=== PATIENT | male | born 1930 | race Caucasian/White ===

== ENCOUNTER 2019-05-02 05:37 | Inpatient (IN) ==
--- NOTE | 2019-04-27 08:10 | History & Physical Report ---
Date of Service April 27, 2019 date of surgery: 05/02/19 Assessment & Plan (1) Tricompartment osteoarthritis of right knee: Risks and benefits of the procedure discussed in detail today, patient would like to proceed with a Right total knee replacement at [facility] as scheduled. will obtain medical clearance prior to surgery as well as obtain PATs at [facility]. Will resume his Eliquis after the surgery, f/u 2 weeks post op for routine post-operative care and x-ray, sooner if having any problems. will make arrangements for HHPT at the time of discharge. At this point in time, has failed conservative measures and would like to proceed with surgical intervention. History of Present Illness Chief Complaint: right knee pain Primary Care Provider: HARLEY ESTES Mr Schmidt is a 89 year old male who complains of right knee pain, presents for pre-op evaluation prior to a right total knee replacement at [facility]. He complains of pain, crepitus, decreased range of motion and stiffness. He states that the symptoms have been chronic non-traumatic and occur constantly with intermittent worsening. Currently the patient states that the symptoms are severe. The pain is described as aching, sharp and throbbing. The symptoms are aggravated by ascending stairs, daily activities, descending stairs, first steps while awake, weight bearing and walking. Fox states that the symptoms are relieved by no specific activity. He is also experiencing decreased mobility, joint pain, limping, loss of motion, pain after activity and stiffness. Prior pain medications include Ultram. Pt is on Eliquis therapy which limits his NSAID use He has been treated with previous Visco and Cortisone in the past on the right and left side equally. He has had PT, has braces and is ambulating with a rolling walker. Allergies Allergy/AdvReac Type Severity Reaction Status Date / Time Penicillins Allergy Severe Anaphylaxis Verified 04/26/19 10:15 ibuprofen [From Motrin] AdvReac Unknown Depression Verified 04/26/19 10:15 Home Medications Home Medications Medication Instructions Recorded Confirmed Type albuterol sulfate 2 puff INHALATION Q6H PRN 04/26/19 04/26/19 History apixaban [Eliquis] 2.5 mg PO BID 04/26/19 04/26/19 History bimatoprost [Lumigan] 1 drp OPHTHALMIC (EYE) PM 04/26/19 04/26/19 History potassium citrate 10 meq PO BID 04/26/19 04/26/19 History tramadol 50 mg PO Q6H PRN 04/26/19 04/26/19 History Past Med/Surg History Medical History Atrial fibrillation Cancer prostate cancer with radiation. no surgery. Chronic obstructive pulmonary disease mild Glaucoma Kidney stones On anticoagulant therapy Osteoarthritis Surgical History History of colonoscopy History of cystoscopy History of lithotripsy History of nasal septoplasty History of open reduction and internal fixation (ORIF) procedure right ankle S/P trigger finger release unsure of side Family History Mother Family history of diabetes mellitus Brother Family hx of colon cancer FHx: pancreatic cancer Social History Preferred Language: Greenlandic Communication Ability: Effective Water Supply Technician Required: No Beliefs That Will Affect Care: None Current Living Situation: Spouse Other Information That Helps Us Care for You: No Feels Safe at Home: Yes Safety Concerns: Feels Safe At This Time Smoking Status: Never smoker Do You Dip or Chew Tobacco: No Second Hand Exposure: No Tobacco Cessation Education Requested by Patient: No Hx Alcohol Use: No Hx Substance Use: No Review of Systems Review of Systems: All systems reviewed & are unremarkable except as noted in HPI & below Constitutional: no fever, no chills and no sweats Respiratory: no cough and no dyspnea Cardiovascular: no chest pain, no dyspnea and no orthopnea Gastrointestinal: no abdominal pain, no nausea and no vomiting Musculoskeletal: as per Subjective / HPI Physical Exam Physical Exam: Ht: 6ft Wt: 92.986kg BP: 104/68 Pulse: 62 Constitutional: WD/WN, vitals as above no acute distress Respiratory: normal respiratory effort, lungs clear to auscultation no respiratory distress, no labored breathing and does not use accessory muscles Cardiovascular: RRR, no murmur, no edema Gastrointestinal (Abdomen): normal bowel sounds, soft, nontender, no hepatosplenomegaly Musculoskeletal: Right Knee Exam He ambulates with a limp and uses a walker, overall varus alignment, no atrophy or ecchymosis, mild effusion, diffuse tenderness to the knee greatest over medial compartment, negative patellar apprehension , mild crepitation with motion, Patella position neutral, andree's negative, Inga's - lateral positive, Inga's - medial positive, Posterior drawer- negative, anterior drawer negative, valgus stress negative, varus stress negative, no extensor lag, pain with active range of motion, less pain with passive painful ROM, Range of motion 0/3/110. No pain with active/passive ROM of ankle. Lower extremity strength normal. Lower extremity neuro-vascular is normal Results & Data Diagnostic Findings Right Knee X-ray from 04-23-19 showing advanced tricompartmental degenerative changes to the right knee, narrowing of of all three compartments, with patellar spurring noted, findings showing joint space narrowing, osteophyte formation and subchondral sclerosis noted. overall varus alignment. no acute bony pathology noted.
--- NOTE | 2019-04-27 08:47 | PAT Medication Instructions ---
Medication Instructions Date of Service April 27, 2019 Home Medications albuterol sulfate 2 puff INHALATION Q6H PRN apixaban [Eliquis] 2.5 mg PO BID bimatoprost [Lumigan] 1 drp OPHTHALMIC (EYE) PM potassium citrate 10 meq PO BID tramadol 50 mg PO Q6H PRN ASK your prescriber and surgeon apixaban [Eliquis] 2.5 mg PO BID MUST BE HELD FOR A MINIMUM OF 72 HOURS BEFORE SURGERY FOR SPINAL ANESTHESIA (PREFERRED METHOD) DO NOT take the morning of surgery potassium citrate 10 meq PO BID Take morning of surgery With a small sip of water, OTHERWISE NOTHING TO EAT OR DRINK AFTER MIDNIGHT: albuterol sulfate 2 puff INHALATION Q6H PRN (if needed, and bring with you to the hospital) tramadol 50 mg PO Q6H PRN (if needed, may be taken up to four hours before surgery) Take evening before surgery albuterol sulfate 2 puff INHALATION Q6H PRN (if needed) bimatoprost [Lumigan] 1 drp OPHTHALMIC (EYE) PM potassium citrate 10 meq PO BID tramadol 50 mg PO Q6H PRN (if needed) Other Notes If you have any questions please call us at [phone] or [phone] or [phone] or [phone]
--- NOTE | 2019-04-27 11:32 | Anesthesiology Consultation ---
Date of Service April 27, 2019 Assessment & Plan (1) Encounter for pre-operative examination: Chart Review Chart Review: Acceptable Risk for Surgery (pending surgeon-ordered PCP clearance (Alirio, done 04/24)) and Patient seen in Pre Admission Testing Teaching & Discussion Instructed NPO after midnight before surgery, except medications with 15 cc of water. Medication instructions provided according to the PAT guidelines. History Surgery Operation Date: 05/02/19 12:10 Proposed Procedures p Right Total Knee Arthroplasty - Gray Restrepo DO Height/Weight Height: 6 ft Weight: 97.2 kg Allergies Allergy/AdvReac Type Severity Reaction Status Date / Time Penicillins Allergy Severe Anaphylaxis Verified 04/26/19 10:15 ibuprofen [From Motrin] AdvReac Unknown Depression Verified 04/26/19 10:15 Medications Home Medications Medication Instructions Recorded Confirmed Last Taken albuterol sulfate 2 puff INHALATION Q6H PRN 04/26/19 04/26/19 Unknown apixaban [Eliquis] 2.5 mg PO BID 04/26/19 04/26/19 Unknown bimatoprost [Lumigan] 1 drp OPHTHALMIC (EYE) PM 04/26/19 04/26/19 Unknown potassium citrate 10 meq PO BID 04/26/19 04/26/19 Unknown tramadol 50 mg PO Q6H PRN 04/26/19 04/26/19 Unknown Past Medical History Medical History Atrial fibrillation Rate controlled, on Eliquis. Cancer h/o prostate cancer, s/p radiation therapy. Chronic obstructive pulmonary disease mild, very very rare albuterol use. Glaucoma Kidney stones On anticoagulant therapy Osteoarthritis Exercise / Class Metabolic Activity III < 4 Walking/Shop/Light housework (No SOB or CP ambulating on one level) Past Family History Family History Mother Family history of diabetes mellitus Brother Family hx of colon cancer FHx: pancreatic cancer Past Surgical History Surgical History History of colonoscopy History of cystoscopy History of lithotripsy History of nasal septoplasty History of open reduction and internal fixation (ORIF) procedure right ankle S/P trigger finger release unsure of side Past Anesthesia History No Hx of Anesthesia Complications and No Family Hx of Anesthesia Complications History of PONV No Hx of PONV and No Hx of Motion Sickness Social History Smoking Status: Never smoker Do You Dip or Chew Tobacco: No Hx Alcohol Use: No Hx Substance Use: No substance use type: does not use Review of Systems Pt denies any recent chest pain, shortness of breath, palpitations, cough, fever or URI. Physical Exam Vital Signs BP: 120/71 P: 86bpm SPO2: 94% RA T: 97.5 F R: 20 ENMT Mouth: + dental bridge (permanent, bottom R); no chipped teeth and no loose teeth Thyromental Distance: > or= 3.5 Finger Breadths (3.5) Mallampati Class: II Neck + limited neck extension (moderately); + abnormal visual inspection Respiratory normal respiratory effort Auscultation: lungs clear to auscultation bilaterally Cardiovascular Rate/Rhythm: regular rate; + abnormal rhythm (irreg irreg) Heart Sounds: + murmur (I/ mitral) Vessels: no carotid bruit Extremities: + edema (trace non-pitting B/L LE) Testing Laboratory Results Blood Type A Positive 04/27/19 11:54 Antibody Screen NEGATIVE 04/27/19 11:54 04/24/19 WBC: 8.25 H/H: 15.2/46.0 PLATELETS: 263 SODIUM: 142 POTASSIUM: 4.2 CHLORIDE: 107 CO2: 28.0 BUN: 28.6 CREATININE: 1.42 GLUCOSE: 152 PT: 12.3 PTT: 31.0 INR: 1.10 UA: unremarkable, negative for bacteria TYPE AND SCREEN: Electrocardiogram Date: 03/25/19 Findings: + AFIB @ (67) Left axis deviation. Low QRS voltage. Nonspecific ST and TWA. Compared to trace dated 05/20/17, vent rate has decreased, rhythm remains non- sinus. Chest X-Ray Date: 04/24/19 Findings: + NAD COPD. Echocardiogram Date: 10/02/18 EF: 60-65% LV is normal in size, wall thickness, wall motion, and contractility. RV is normal in size and contractility. Degenerated MV, mild MR and AI. Normal RVSP.
[2019-05-02] MEDS ORDERED: METOCLOPRAMIDE HCL 10 MG TABLET PO SCH (06:00)
[2019-05-02] MEDS ORDERED: ACETAMINOPHEN 500 MG TAB PO SCH (06:00)
[2019-05-02] MEDS ORDERED: ROPIVACAINE 0.5% HCL/PF 150 MG, BUPIVACAINE 0.5% MPF 30 ML, EPINEPHrine 30MG/30ML (OR U... INSTIL SCH (06:00)
[2019-05-02] MEDS ORDERED: CLINDAMYCIN 600 MG/54 ML BAG IV SCH (06:00)
[2019-05-02] MEDS ORDERED: CEFAZOLIN 2000MG 2,000 MG/15 ML SYR IV SCH (06:00)
[2019-05-02] MEDS ORDERED: GABAPENTIN 300 MG CAP PO SCH (06:00)
[2019-05-02] MEDS ORDERED: FAMOTIDINE 20 MG TAB PO SCH (06:00)
[2019-05-02] MEDS ORDERED: CeleBREX 200 MG CAP PO SCH (06:00)
[2019-05-02] MEDS ORDERED: LR 500ML BOLUS, THEN 15ML/HR IV SCH (06:00)
[2019-05-02] MEDS ORDERED: dexAMETHasone 4 MG TAB PO SCH (06:00)
[2019-05-02] MEDS ORDERED: BUPIVACAINE 0.5 % 5 MG/1 ML PF 10ML VIAL ONE (06:29)
[2019-05-02] MEDS ORDERED: ROPIVACAINE 0.5% 5 MG/ML 30 ML VIAL ONE (06:29)
[2019-05-02] MEDS ORDERED: EPINEPHrine INJ 1 MG/ML AMP ONE (06:29)
[2019-05-02] MEDS ORDERED: BACITRACIN INJ 50,000 UNIT VIAL ONE (06:57)
[2019-05-02] MEDS ORDERED: ORTHO JOINT ANESTHETIC ONE (06:57)
[2019-05-02] MEDS ORDERED: MIDAZOLAM HCL 1 MG/ML 2ML VIAL ONE (06:59)
[2019-05-02] MEDS ORDERED: fentaNYL citrate 100 MCG/2 ML VIAL ONE (06:59)
[2019-05-02] MEDS ORDERED: LIDOCAINE HCL 2% 2 ML VIAL/AMP(20MG/ML) INFIL ONE (06:59)
[2019-05-02] MEDS ORDERED: PROPOFOL IV EMULSION 10 MG/ML 20 ML VIAL IV ONE (06:59)
--- NOTE | 2019-05-02 07:02 | History & Physical Bridge Note ---
Date of Service May 02, 2019 History & Physical Bridge Note I have examined the patient, reviewed the History & Physical and in the interval since the performance of the History & Physical I have noted the following changes of clinical significance: no changes noted
[2019-05-02] MEDS ORDERED: ONDANSETRON INJ 2 MG/ML 2 ML VIAL IV PRN ×2 (07:23→11:10)
[2019-05-02] MEDS ORDERED: ePHEDrine sulfate 50 MG/ML AMP IV PRN (07:23)
[2019-05-02] MEDS ORDERED: ATROPINE SULFATE 0.1 MG/ML 10ML SYR IV PRN (07:23)
[2019-05-02] MEDS ORDERED: fentaNYL citrate 100 MCG/2 ML VIAL IV PRN (07:23)
--- NOTE | 2019-05-02 09:23 | Operative Report ---
Post Operative Report Pre & Post Diagnosis Operation Date: 05/02/19 08:20 Pre-Op Diagnosis: Unilateral Primary Osteoarthritis, Right Knee Post-Op Diagnosis: Unilateral Primary Osteoarthritis, Right Knee Procedure Operation Date: 05/02/19 08:20 Actual Procedures p Right Total Knee Arthroplasty(Right) utilizing Zhang & Nephew journey to non- block total knee arthroplasty size 7 femur size 6 tibia size 12 polyethylene size 35 oval patella- Gray Restreop DO Surgeon Gray Restrepo DO Chief Digital Officer Mike HOLT Estimated Blood Loss 5 Findings Consistent with Post-Op Diagnosis Patient presents with severe end-stage tricompartmental degenerative joint disease right knee no response to conservative management patient rested for right total knee arthroplasty the above intraoperative findings were noted subchondral sclerosis marginal osteophytes moderate to large effusion eburnated [id number] tricompartmentally Specimens Bone cartilage Drains Medium bore Hemovac Complications none Disposition Accompanied Patient To Recovery: No Disposition: Recovery Room Indications Patient presents as needed 9-year-old white male being seen by with planes of ongoing pain about his right knee no response to conservative management is failed attempted conservative measures including physical therapy anti- inflammatories relative rest activity modification corticosteroid injection Vis co supplementation in light of his age of 89 he is still physiologically in excellent condition very active and is essentially unable to ambulate due to the severe arthritis of his knee after medical clearance preoperative discussion with family patient extensive discussion regarding risk complications decision made to proceed forward with right total knee arthroplasty Description of Procedure After proper prepping and draping of the Right lower extremity anterior midline incision was made over the region of the extensor extensor mechanism after meticulous hemostasis was obtained and maintained in subcutaneous tissues a medial parapatellar incision was made The patella was subluxed lateralward the medial lateral gutter were cleaned from any hypertrophic synovitis and scar tissue of the distal femoral block was placed and the distal femoral osteotomy cut was made subsequently the chamfers anterior and posterior osteotomy cuts were made utilizing the 4-in-1 block the tibia was subsequently subluxed anteriorward medial and ateral meniscal remnants were excised in their entirety remnants of the anterior and posterior cruciate ligaments were excised in their entirety excellent exposure of the proximal tibia was obtained the tibial osteotomy guide was placed on the proximal tibial osteotomy cut was made once again the knee was irrigated with copious amounts of sterile saline solution the patella was subsequently everted lateralward thickened scar tissue around the patella was removed the patella was subsequently cut utilizing a freehand technique and was drilled prepared for final preparation and placement of patella socially flexion-extension gaps were checked and the equal and symmetric trials were placed to the appropriate femoral and tibial trials with poly-spacer being placed for equal flexion and extension gaps and full range of motion including extension to 0 and flexion to 140 the trial components after having been taken to recovery range of motion was subsequently removed meticulous hemostasis was obtained and maintained subsequently a knee block injection of joint cocktail including ropivacaine 0.5% 150 mg. Bupivacaine 0.5% epinephrine 1-200,030 mL's toradol 30 mg dexamethasone 4 mg ketamine 10 mg clonidine 100 micrograms normal saline solution 30 mg was infiltrated into the soft tissues of the posterior knee medial lateral gutters and periosteal synovium special attention was paid to protect neurovascular structures at all times subsequently trial components having been removed the knee was irrigated with sterile saline solution. debris was removed the proximal tibia was subsequently prepared and was made ready for the placement of the tibial component tibial component was also cemented and tamped into position the femoral component was subsequently placed and cemented in the position the patellar component was subsequently cemented in position because hemostasis once again obtained and maintained wound having been thoroughly irrigated with debridement and debridement lavage was performed as well as a medial parapatellar incision closed with #1 Vicryl in interrupted fashion subcutaneous was closed with #2 Vicryl skin was closed with skin clips. PA-C was necessary for prepping and drapping as well as wound closure of deep fascia Sub cutaneous tissue and skin and was necessary for the case. A sterile compressive dressing was placed patient was taken to recovery in stable condition of report dictated by Lauro I attest to the content of the Intraoperative Record and any orders documented therein. Any exceptions are noted below. I attest to the content of the Intraoperative Record and any orders documented therein. Any exceptions are noted below.
[2019-05-02] MEDS ORDERED: PHENYLEPHRINE 100MCG/ML 5ML SYR ONE (09:49)
--- NOTE | 2019-05-02 10:26 | XRay Report ---
XR knee RT 2V routine CLINICAL HISTORY: Surgical Post Op postoperative COMPARISON: None. DISCUSSION: Anatomic alignment posttotal right knee arthroplasty. Good contact between prosthetic and underlying bone. Expected postoperative soft tissue change. Drainage catheters are in position. IMPRESSION: Anatomic alignment posttotal right knee arthroplasty. The above report was generated using voice recognition software. It may contain grammatical, syntax or spelling errors. Electronically signed by: Alvarado Menendez M.D. 05/02/2019 10:25 AM
--- NOTE | 2019-05-02 10:39 | Anesthesiology Progress Note ---
Date of Service May 02, 2019 Anesthesia Post Procedure Vital Signs Vital Signs: Temp Pulse Resp BP Pulse Ox 05/02/19 10:30 56 L 15 114/59 L 96 05/02/19 10:20 52 L 15 101/56 L 96 05/02/19 10:10 63 16 103/56 L 99 05/02/19 10:00 36.1 C L 56 L 16 96/52 L 97 05/02/19 06:42 36.5 C 58 L 18 141/82 H 95 Transfer of Care Handoff Completed per policy Notes Mental Status: alert / awake / arousable and participated in evaluation Patient Amnestic to Procedure: Yes Nausea / Vomiting: adequately controlled Pain: adequately controlled Airway Patency, RR, SpO2: stable & adequate BP & HR: stable & adequate Hydration State: stable & adequate Neuraxial Anesthesia: was administered and sensory block is resolving Anesthetic Complications: no major complications apparent and Pt Satisfied with anesthetic care
[2019-05-02] MEDS ORDERED: ALBUTEROL HFA 8 GM INHALER INH PRN (11:10)
[2019-05-02] MEDS ORDERED: MAGNESIUM HYDROXIDE SUSP 30 ML UDC PO PRN (11:10)
[2019-05-02] MEDS ORDERED: BISACODYL 10 MG SUPP PR PRN (11:10)
[2019-05-02] MEDS ORDERED: NALOXONE HCL 0.4 MG/1 ML VIAL/CARP IV PRN (11:10)
[2019-05-02] MEDS ORDERED: HYDROmorphone INJ 0.5 MG/0.5 ML SYR IV PRN (11:10)
[2019-05-02] MEDS ORDERED: ALUMINUM/MAGNESIUM SUSP 30 ML UDC PO PRN (11:10)
[2019-05-02] MEDS: ACETAMINOPHEN 500 MG TAB PO SCH ×2 (13:45→21:40)
[2019-05-02] MEDS: SODIUM CHLORIDE 0.9% 1000ML 1,000 ML IV SCH ×2 (14:45→22:12)
[2019-05-02] MEDS: CLINDAMYCIN 600 MG in DEXTROSE 5% 50 ML IV SCH ×2 (15:35→23:29)
[2019-05-02] MEDS: FERROUS GLUCONATE 324 MG TAB PO SCH (17:38)
[2019-05-02] MEDS: POTASSIUM CITRATE 10 MEQ TAB PO SCH (20:20)
[2019-05-02] MEDS: DOCUSATE SODIUM 100 MG CAP PO SCH (20:20)
[2019-05-02] MEDS: SENNA 8.6 MG TAB PO SCH (20:20)
[2019-05-02] MEDS: BIMATOPROST 0.01% OP SOLN 2.5 ML BTL OP SCH (20:21)
[2019-05-03] MEDS: ACETAMINOPHEN 500 MG TAB PO SCH ×3 (05:06→21:11)
[2019-05-03 06:53] LABS: Hematocrit (blood only) 34.1 % (42-52); Hemoglobin 11.9 g/dL (14.0-18.0); Mean Corpuscular Hgb Conc 34.9 g/dL (32-36); Mean Corpuscular Volume 91.4 fL (80-100); Platelet Count 197 K/uL (130-400); RDW Coefficient of Variation 13.7 % (11.5-14.5); RDW Standard Deviation 45.9 fL (36.4-46.3); Red Blood Count 3.73 M/uL (4.7-6.1); White Blood Count 12.28 K/uL (4.8-10.8)
[2019-05-03 07:31] LABS: BUN Creatinine Ratio 25.7 (10-20); Calcium 8.3 mg/dl (8.5-10.1); Creatinine Clr Calc Pharmacy 45.4 ml/min; Est GFR (Non-African American) 47.5; Potassium 4.3 mmol/L (3.5-5.1)
--- NOTE | 2019-05-03 07:51 | Anesthesiology Progress Note ---
Date of Service May 03, 2019 Anesthesia Post Procedure Vital Signs Vital Signs: Temp Pulse Resp BP Pulse Ox 05/03/19 06:47 36.5 C 63 18 134/66 96 05/03/19 03:49 36.5 C 60 17 118/74 95 05/03/19 00:00 36.6 C 63 17 103/62 95 05/02/19 20:04 36.6 C 75 17 125/68 95 05/02/19 16:00 36.7 C 92 H 18 133/78 92 05/02/19 13:42 36.3 C L 84 18 123/77 96 05/02/19 12:45 36.4 C L 87 18 129/75 94 05/02/19 11:51 60 16 123/73 94 05/02/19 11:14 35.8 C L 72 18 123/69 93 05/02/19 10:45 36.4 C L 71 16 116/66 95 05/02/19 10:40 36.6 C 68 16 114/66 94 05/02/19 10:30 56 L 15 114/59 L 96 05/02/19 10:20 52 L 15 101/56 L 96 05/02/19 10:10 63 16 103/56 L 99 05/02/19 10:00 36.1 C L 56 L 16 96/52 L 97 Notes Mental Status: alert / awake / arousable Patient Amnestic to Procedure: Yes Nausea / Vomiting: adequately controlled Pain: adequately controlled Anesthetic Complications: no major complications apparent
[2019-05-03] MEDS: APIXABAN 2.5 MG TAB PO SCH ×2 (08:39→21:10)
[2019-05-03] MEDS: FERROUS GLUCONATE 324 MG TAB PO SCH ×2 (08:39→19:00)
[2019-05-03] MEDS: DOCUSATE SODIUM 100 MG CAP PO SCH ×2 (08:39→21:12)
[2019-05-03] MEDS: POTASSIUM CITRATE 10 MEQ TAB PO SCH ×2 (08:39→21:11)
[2019-05-03] MEDS: MULTIVITAMIN TAB PO SCH (08:40)
--- NOTE | 2019-05-03 10:04 | Orthopedic Progress Note ---
Date of Service May 03, 2019 Assessment & Plan (1) Tricompartment osteoarthritis of right knee: 89 yo male stable POD #1 s/p right TKA 1. Med management 2. DVT prophylaxis- ASA, SCDs 3. PT/OT 4. D/C planning- home w/ HH Subjective Pt resting in bed, pain controlled, denies complaints Physical Exam Physical Exam: Toes mobile, N/V/I, dressing and drain in place Results & Data Vital Signs (Past 12 Hours) Vital Signs Temp Pulse Resp BP Pulse Ox 05/03/19 06:47 36.5 C 63 18 134/66 96 05/03/19 03:49 36.5 C 60 17 118/74 95 05/03/19 00:00 36.6 C 63 17 103/62 95 Laboratory Results 05/03/19 05/03/19 Range/Units 06:29 06:29 WBC 12.28 H (4.8-10.8) K/uL RBC 3.73 L (4.7-6.1) M/uL Hgb 11.9 L (14.0-18.0) g/dL Hct 34.1 L (42-52) % MCV 91.4 (80-100) fL MCH 31.9 (25-34) pg MCHC 34.9 (32-36) g/dL RDW Std Deviation 45.9 (36.4-46.3) fL RDW Coeff of John 13.7 (11.5-14.5) % Plt Count 197 (130-400) K/uL MPV 10.0 (7.4-10.4) fL Sodium 140 (136-145) mmol/L Potassium 4.3 (3.5-5.1) mmol/L Chloride 109 H (98-107) mmol/L Carbon Dioxide 25 (21-32) mmol/L Anion Gap 6.0 (3-11) BUN 34 H (7-18) mg/dl Creatinine 1.32 (0.6-1.4) mg/dl Est Cr Clr Drug Dosing 45.4 ml/min Est GFR ( Amer) 55.0 Est GFR (Non-Af Amer) 47.5 BUN/Creatinine Ratio 25.7 H (10-20) Glucose 144 H (70-99) mg/dl Calcium 8.3 L (8.5-10.1) mg/dl
--- NOTE | 2019-05-03 16:12 | Family Medicine Consultation ---
Date of Consultation May 03, 2019 History of Present Illness Attending Physician: Patient seen at the request of Dr. Restrepo. History and physical reviewed. Mr. Schmidt is a very pleasant 89 year old male seen in consultation for medical management following right TKA with Dr. Restrepo yesterday. He has a history of atrial fibrillation and COPD. As far as his atrial fibrilation is concerned, he is not on any rate controlling medications. He is anticoagulated with Eliquis. Allergies Allergy/AdvReac Type Severity Reaction Status Date / Time Penicillins Allergy Severe Anaphylaxis Verified 05/02/19 06:35 ibuprofen [From Motrin] AdvReac Unknown Depression Verified 05/02/19 06:35 Home Medications Home Medications Medication Instructions Recorded Confirmed Type albuterol sulfate 2 puff INHALATION Q6H PRN 04/26/19 05/02/19 History apixaban [Eliquis] 2.5 mg PO BID 04/26/19 05/02/19 History bimatoprost [Lumigan] 1 drp OPHTHALMIC (EYE) PM 04/26/19 05/02/19 History potassium citrate 10 meq PO BID 04/26/19 05/02/19 History tramadol 50 mg PO Q6H PRN 04/26/19 05/02/19 History acetaminophen [Tylenol Extra 1,000 mg PO Q8 14 Days #84 tab 05/03/19 Rx Strength] oxycodone 5 mg PO Q6H PRN #30 tab 05/03/19 Rx Patient History Medical History Atrial fibrillation Rate controlled, on Eliquis. Cancer h/o prostate cancer, s/p radiation therapy. Chronic obstructive pulmonary disease mild, very very rare albuterol use. Glaucoma Kidney stones On anticoagulant therapy Osteoarthritis Surgical History History of colonoscopy History of cystoscopy History of lithotripsy History of nasal septoplasty History of open reduction and internal fixation (ORIF) procedure right ankle S/P trigger finger release unsure of side Family History Mother Family history of diabetes mellitus Brother Family hx of colon cancer FHx: pancreatic cancer Social History Preferred Language: Setswana Communication Ability: Effective Display Screen Fabricator Required: No Beliefs That Will Affect Care: None marital status: Current Living Situation: Spouse Other Information That Helps Us Care for You: No Feels Safe at Home: Yes Safety Concerns: Feels Safe At This Time Smoking Status: Never smoker Do You Dip or Chew Tobacco: No Second Hand Exposure: No Tobacco Cessation Education Requested by Patient: No Hx Alcohol Use: No Hx Substance Use: No Results & Data Vital Signs (Past 12 Hours) Vital Signs Temp Pulse Resp BP Pulse Ox 05/03/19 15:25 36.4 C L 80 16 130/67 98 05/03/19 10:52 36.4 C L 82 18 145/81 H 96 05/03/19 06:47 36.5 C 63 18 134/66 96
--- NOTE | 2019-05-03 16:27 | Family Medicine Consultation ---
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 Restrepo Pain control per ortho PT/OT (2) Atrial fibrillation: rate controlled--not on a rate controlling medicaton anticoagulated with eliquis--continue as this can also be used to DVT prophylaxis (3) COPD (chronic obstructive pulmonary disease): stable. continue albuterol inhaler PRN. (4) Glaucoma: stable. continue home bimatoprost drops (brought from home, approved by pharmacy). History of Present Illness Attending Physician: Patient seen at the request of Dr. Restrepo. History and physical reviewed. Mr. Schmidt is a very pleasant 89 year old male seen in consultation for medical management following right TKA with Dr. Restrepo yesterday. He has a history of atrial fibrillation, COPD and glaucoma. As far as his atrial fibrillation is concerned, he is not on any rate controlling medications. He is anticoagulated with Eliquis. He was told he has a history of COPD, but this was also when he was diagnosed with pneumonia. He is prescribed albuterol inhalers, but has not used the inhaler in many months. Reports some pain in the right leg, especially after he was walking with physical therapy this morning. Denies calf tightness. Denies chest pain or dy spnea. Allergies Allergy/AdvReac Type Severity Reaction Status Date / Time Penicillins Allergy Severe Anaphylaxis Verified 05/02/19 06:35 ibuprofen [From Motrin] AdvReac Unknown Depression Verified 05/02/19 06:35 Home Medications Home Medications Medication Instructions Recorded Confirmed Type albuterol sulfate 2 puff INHALATION Q6H PRN 04/26/19 05/02/19 History apixaban [Eliquis] 2.5 mg PO BID 04/26/19 05/02/19 History bimatoprost [Lumigan] 1 drp OPHTHALMIC (EYE) PM 04/26/19 05/02/19 History potassium citrate 10 meq PO BID 04/26/19 05/02/19 History tramadol 50 mg PO Q6H PRN 04/26/19 05/02/19 History acetaminophen [Tylenol Extra 1,000 mg PO Q8 14 Days #84 tab 05/03/19 Rx Strength] oxycodone 5 mg PO Q6H PRN #30 tab 05/03/19 Rx Patient History Medical History Atrial fibrillation Rate controlled, on Eliquis. Cancer h/o prostate cancer, s/p radiation therapy. Chronic obstructive pulmonary disease mild, very very rare albuterol use. 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 Beliefs That Will Affect Care: None marital status: Current Living Situation: Spouse Other Information That Helps Us Care for You: No Feels Safe at Home: Yes Safety Concerns: Feels Safe At This Time Smoking Status: Never smoker Do You Dip or Chew Tobacco: No Second Hand Exposure: No Tobacco Cessation Education Requested by Patient: No Hx Alcohol Use: No Hx Substance Use: No Review of Systems Review of Systems: All systems reviewed & are unremarkable except as noted in HPI & below Physical Exam Constitutional: WD/WN, vitals as above well developed, well nourished and comfortable; no acute distress Neck: trachea midline Respiratory: normal respiratory effort, lungs clear to auscultation Cardiovascular: RRR, no murmur, no edema Extremities: normal capillary refill; no calf tenderness and no edema + dorsalis pedis pulses Gastrointestinal (Abdomen): normal bowel sounds, soft, nontender, no hepatosplenomegaly Musculoskeletal: Right knee in yi wrap, drain in place. Skin: no rashes, warm and dry Neurologic: moves all extremities and awake; no focal motor deficits Results & Data Vital Signs (Past 12 Hours) Vital Signs Temp Pulse Resp BP Pulse Ox 05/03/19 15:25 36.4 C L 80 16 130/67 98 05/03/19 10:52 36.4 C L 82 18 145/81 H 96 05/03/19 06:47 36.5 C 63 18 134/66 96 PG Care Time/CCT Total # of Minutes Spent Total Time Spent with Patient: Total time spent is greater than 50% in coordination of care (as documented) at patient's floor/unit and/or counseling patient:
[2019-05-03] MEDS: BIMATOPROST 0.01% OP SOLN 2.5 ML BTL OP SCH (21:10)
[2019-05-03] MEDS: SENNA 8.6 MG TAB PO SCH (21:12)
[2019-05-03] MEDS: OXYCODONE HCL IR 5 MG TAB (IMMEDIATE RELEASE) PO PRN (21:29)
[2019-05-04] MEDS: ACETAMINOPHEN 500 MG TAB PO SCH ×2 (05:32→13:53)
[2019-05-04] MEDS: OXYCODONE HCL IR 5 MG TAB (IMMEDIATE RELEASE) PO PRN ×2 (07:54→13:52)
[2019-05-04] MEDS: FERROUS GLUCONATE 324 MG TAB PO SCH (07:55)
[2019-05-04] MEDS: POTASSIUM CITRATE 10 MEQ TAB PO SCH (07:55)
[2019-05-04] MEDS: MULTIVITAMIN TAB PO SCH (07:55)
[2019-05-04] MEDS: APIXABAN 2.5 MG TAB PO SCH (07:56)
[2019-05-04] MEDS: DOCUSATE SODIUM 100 MG CAP PO SCH (07:56)
--- NOTE | 2019-05-04 09:28 | Progress Note ---
DATE: 05/04/2019 SUBJECTIVE: The patient is postop day 2 status post right total knee arthroplasty. He is currently sitting up in his chair at the bedside and is awake and alert and oriented. He states he is having some more pain this morning after having his drain removed and said that it hurt quite a bit after the drain had come out. He has no other complaints at this time. Denies shortness of breath, chest pain or lightheadedness and denies calf tenderness. He is hoping to go home today. OBJECTIVE: EXTREMITIES: Silverlon dressing has some mild drainage noted in the dressing window. He has some mild to moderate swelling of the right knee consistent with his right knee surgery. He has some mild ecchymosis noted as well. Calves were soft, nontender, neurovascularly intact. Toes were mobile. ASSESSMENT: Postop day 2 status post right total knee arthroplasty. PLAN: Continue PT and OT protocols, continue DVT prophylaxis and pain management. We will see how his pain control is throughout the morning. I discussed with him that he needed to continue to take his medications on a regular basis and not trying wait out the pain before trying to start medications. The patient understands and again we will see how his pain control is today before we decide to discharge him. Addendum: Returned to see pt this afternoon. Pt sleepy this afternoon. States he did not sleep well last night. Pain controlled presently. I spoke to PT about his progression. They feel he is doing well and can go home if he has help at home. Family present and state they are prepared to help take care of him at home. Plan for dc to home today. ELISA
--- NOTE | 2019-05-08 02:37 | Discharge Summary ---
DISCHARGE DIAGNOSIS: Degenerative joint disease, right knee. SECONDARY DIAGNOSES: Atrial fibrillation, chronic obstructive pulmonary disease, glaucoma, renal calculi, osteoarthritis, chronic anticoagulation for his AFib. CONSULTS: Pawel Mtz DO COMPLICATIONS: None. PROCEDURES: Right total knee arthroplasty performed by Dr. Restrepo on 05/02/2019. BRIEF HISTORY: As dictated in the history and physical. HOSPITAL SUMMARY: The patient was admitted on the above-noted date and had the above-noted surgery performed, which he tolerated well. On his first postoperative day, he was resting in bed. Pain was controlled. He had no complaints. Toes were mobile. Neurovascularly intact. Dressings and drain were in place and vital signs were stable and he was afebrile. Hemoglobin was 11.9. He was started on physical therapy protocol and continued on DVT prophylaxis and pain management. Medicine service was consulted for postoperative medical management and continued to see the patient during his stay. By his second postoperative day, he was currently sitting up in his chair at the bedside and was awake, alert and oriented. He stated he was having some more pain that morning after having his drain removed and said that it hurt quite a bit after the drain had come out. He had no other complaints at that time. Denies shortness of breath, chest pain, or lightheadedness. Denied calf tenderness and he was hoping to go home that day. A Silverlon dressing had some mild drainage noted in the dressing window. He had some mild to moderate swelling of the right knee consistent with his right knee surgery and mild ecchymosis noted as well. Calves were soft, nontender, neurovascularly intact. Toes were mobile. He was continued on his PT, OT protocols and continued on pain management and DVT prophylaxis. I returned to see the patient that afternoon who was sleeping after lunch. He states he did not sleep well the previous night and pain was controlled at that time. He was progressing in his PT as far as ambulation and PT felt that he could do well at home as long as he had a 24-hour help from family, which they assured me that there would be. He was otherwise remaining stable and it was felt he could be discharged to home. For further review, please see chart. LABORATORY AND X-RAY DATA: As per chart. DISCHARGE INSTRUCTIONS: The patient was discharged to home in satisfactory condition on 05/04/2019. DIET: Regular. ACTIVITY: Weightbearing as tolerated on the right lower extremity with walker. Follow TK instruction sheets and special care instructions as noted. Follow up with Dr. Restrepo in 2 weeks. The patient to call for appointment if one has not been made for you. DISCHARGE MEDICATIONS: Acetaminophen 1000 mg p.o. q. 8 hours, oxycodone 5-10 mg p.o. q. 6 hours p.r.n., sennosides 17.2 mg p.o. at bedtime. Resume home meds as listed and stop taking tramadol. MTDD
== END 2019-05-04 15:34 | disposition home health service (06) | DRG 470 ==
LOC: ASU 05:37 → 3E 10:09 → SUATTDRO 10:09